=== PATIENT | female | born 1960 | race Two or more races ===

== ENCOUNTER 2024-12-09 16:21 | Emergency (ER) | payer MEDICAID ==
[~2024-12-09] VITALS: Ht 157.5 cm; Wt 49.9 kg
[2024-12-09 16:55] VITALS: BP 112/74; TEMP 98.7; O2SAT 96
== END 2024-12-09 17:08 | disposition home or self-care (01) ==
LOC: ER 16:28
DX: S09.90XA Unspecified injury of head, initial encounter (principal); W22.8XXA Striking against or struck by other objects, initial encounter; Y93.89 Activity, other specified; Y92.89 Other specified places as the place of occurrence of the external cause; Y99.8 Other external cause status